=== PATIENT | male | born 1990 | race Asian ===

== ENCOUNTER 2022-05-18 17:38 | Emergency (ER) | payer BC ==
[~2022-05-18] VITALS: Ht 182.9 cm; Wt 85.7 kg
[2022-05-18 17:47] VITALS: BP 117/77
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
--- NOTE | 2022-05-18 18:11 | NUR ---
COMPLETED AND FAXED ANIMAL BITE REPORT FORM. FAX # [phone].
[2022-05-18] MEDS ORDERED: RABIES VACCINE (PCEC)/PF 1 EA KIT IM ONE (18:38)
[2022-05-18] MEDS: RABIES IMMUNE GLOBULIN/PF 150 UNIT/ML VIAL IM ONE (18:57)
[2022-05-18] MEDS: RABIES VACCINE (PCEC)/PF 1 EA KIT IM ONE (19:00)
[2022-05-18] MEDS ORDERED: AMOX-430 PO (19:05)
--- NOTE | 2022-05-18 19:11 | NUR ---
Patient discharged to home in stable condition. Written and verbal after care instructions given. Patient verbalizes understanding of instruction.
== END 2022-05-18 19:13 | disposition home or self-care (01) ==
LOC: ER 17:42
DX: S60.511A Abrasion of right hand, initial encounter (principal); Z23 Encounter for immunization; Z60.2 Problems related to living alone; W55.51XA Bitten by raccoon, initial encounter; Y93.89 Activity, other specified; Y92.89 Other specified places as the place of occurrence of the external cause; Y99.8 Other external cause status
CPT/HCPCS: 90375